=== PATIENT | female | born 1995 | race Caucasian/White ===

== ENCOUNTER 2016-08-28 15:06 | Emergency (ER) | payer OTHER ==
[~2016-08-28] VITALS: Ht 170.2 cm; Wt 62.7 kg
[2016-08-28 15:10] VITALS: TEMP 36.7
[2016-08-28] MEDS ORDERED: ADVIN25/60 INH (15:42)
[2016-08-28] MEDS ORDERED: SODIUM CHLORIDE 0.9% 1000ML 1,000 ML IV STA (16:09)
[2016-08-28 16:15] VITALS: Ht 170.2 cm; Wt 62.7 kg
--- NOTE | 2016-08-28 16:15 | EMERGENCY ROOM VISIT NOTE ---
History Report prepared by George: Artis Callejas Under the Supervision of: Dr. Damion Haskins M.D. First contact with patient: 16:03 Chief Complaint: ED VAG BLEEDING Stated Complaint: INTERNAL BLEEDING, CRAMPS, 7-8 WKS History of Present Illness The patient is a 21 year old female who presents to the Emergency Room with complaints of vaginal bleeding that began 3 days ago. The patient is 7-8 weeks . She realized that she was two to three weeks ago. She has never been before and has not had any miscarriages. The patient began to experience abnormal vaginal bleeding. She states that is is bright red and a significantly larger amount than her usual periods. She goes through a large pad every 2/3 hours. She is also experiencing abdominal cramps. Her BHG was 387.6 yesterday. She denies any recent fevers. Source of History: patient Onset: 3 days ago Position: other (vagina) Symptom Intensity: moderate Quality: other (bleeding) Timing: intermittent Associated Symptoms: + abdominal pain, No fevers Review of Systems See HPI for pertinent positives & negatives. A total of 10 systems reviewed and were otherwise negative. Past Medical & Surgical Medical Problems: (1) No Known Active Medical Problems Family History Diabetes mellitus FH: heart disease Social History Smoking Status: Never Smoker Smokeless Tobacco Use: Unknown Housing Status: unknown Current/Historical Medications Scheduled Fluticasone Prop/Salmeterol (Advair Diskus 250/50 60 Dose), 1 PUFF INH QAM Allergies Coded Allergies: No Known Allergies (Unverified , 06/02/10) Physical Exam Vital Signs Date Time Temp Pulse Resp B/P Pulse Ox O2 Delivery O2 Flow Rate FiO2 08/28/16 16:22 66 08/28/16 16:16 Room Air 08/28/16 15:10 36.7 67 18 125/76 98 Room Air Physical Exam GENERAL: Patient is a healthy-appearing well-nourished HEAD: Normocephalic atraumatic EYES: Ocular movements intact pupils equal and react to light OROPHARYNX mucous membranes are moist no exudates present no erythema or edema present NECK: Supple no nuchal rigidity CHEST: Good equal expansion LUNGS: Clear and equal to auscultation CARDIAC: Normal S1 and S2 ABDOMEN: Soft nontender no guarding BACK: No CVA tenderness EXTREMITIES: No pain upon palpation normal muscle strength in all groups no clubbing cyanosis or edema NEURO: Patient is following commands is answering questions appropriately. Alert and oriented x3 Cranial Nerves 2-12 grossly intact Medical Decision & Procedures ER Provider Diagnostic Interpretation: Radiology results are stated below per my review and radiologist interpretation: <14 WKS SINGLE ((transabdominal and endovaginal scanning) CLINICAL HISTORY: . Heavy vaginal bleeding. COMPARISON STUDY: No previous studies for comparison. FINDINGS: The uterus measured 7.2 x 3.5 x 4.9 cm. No intrauterine gestational sac was visualized. The endometrial stripe measured 8 mm. The right ovary measured 31 x 13 x 23 mm. The left ovary measured 28 x 20 x 21 mm. Both ovaries appear architecturally unremarkable. IMPRESSION: 1. No adnexal masses identified 2. No evidence of intrauterine gestation. Diagnostic considerations therefore include early intrauterine gestation (too small to visualize), spontaneous , or ectopic . Clinical follow-up and correlation with quantitative beta hCGs is recommended. Electronically signed by: Kalpesh Borges M.D. 08/28/2016 6:27 PM Dictated Date/Time: 08/28/2016 6:25 PM Laboratory Results 08/28/16 16:05 Red Blood Count 4.35, Mean Corpuscular Volume 83.7, Mean Corpuscular Hemoglobin 28.5, Mean Corpuscular Hemoglobin Concent 34.1, Mean Platelet Volume 9.4, Neutrophils (%) (Auto) 67.1, Lymphocytes (%) (Auto) 22.9, Monocytes (%) (Auto) 5.4, Eosinophils (%) (Auto) 4.5, Basophils (%) (Auto) 0.1, Neutrophils # (Auto) 4.48, Lymphocytes # (Auto) 1.53, Monocytes # (Auto) 0.36, Eosinophils # (Auto) 0.30, Basophils # (Auto) 0.01 08/28/16 16:05 Test 08/28/16 16:05 08/28/16 16:20 White Blood Count 6.68 K/uL (4.8-10.8) Red Blood Count 4.35 M/uL (4.2-5.4) Hemoglobin 12.4 g/dL (12.0-16.0) Hematocrit 36.4 % (37-47) Mean Corpuscular Volume 83.7 fL (80-100) Mean Corpuscular Hemoglobin 28.5 pg (25-34) Mean Corpuscular Hemoglobin Concent 34.1 g/dl (32-36) Platelet Count 290 K/uL (130-400) Mean Platelet Volume 9.4 fL (7.4-10.4) Neutrophils (%) (Auto) 67.1 % Lymphocytes (%) (Auto) 22.9 % Monocytes (%) (Auto) 5.4 % Eosinophils (%) (Auto) 4.5 % Basophils (%) (Auto) 0.1 % Neutrophils # (Auto) 4.48 K/uL (1.4-6.5) Lymphocytes # (Auto) 1.53 K/uL (1.2-3.4) Monocytes # (Auto) 0.36 K/uL (0.11-0.59) Eosinophils # (Auto) 0.30 K/uL (0-0.5) Basophils # (Auto) 0.01 K/uL (0-0.2) RDW Standard Deviation 43.5 fL (36.4-46.3) RDW Coefficient of Variation 14.1 % (11.5-14.5) Immature Granulocyte % (Auto) 0.0 % Immature Granulocyte # (Auto) 0.00 K/uL (0.00-0.02) Prothrombin Time 10.3 SECONDS (9.0-12.0) Prothromb Time International Ratio 1.0 (0.9-1.1) Activated Partial Thromboplast Time 28.1 SECONDS (21.0-31.0) Partial Thromboplastin Ratio 1.1 Anion Gap 10.0 mmol/L (3-11) Est Creatinine Clear Calc Drug Dose 130.9 ml/min Estimated GFR () 145.0 Estimated GFR (Non- 125.1 BUN/Creatinine Ratio 25.4 (10-20) Calcium Level 8.6 mg/dl (8.5-10.1) Total Bilirubin 0.3 mg/dl (0.2-1) Aspartate Amino Transf (AST/SGOT) 48 U/L (15-37) Alanine Aminotransferase (ALT/SGPT) 86 U/L (12-78) Alkaline Phosphatase 78 U/L (45-117) Total Protein 7.0 gm/dl (6.4-8.2) Albumin 3.5 gm/dl (3.4-5.0) Globulin 3.5 gm/dl (2.5-4.0) Albumin/Globulin Ratio 1.0 (0.9-2) Human Chorionic Gonadotropin, Quant 127 mIU/mL Urine Color DK YELLOW Urine Appearance CLEAR (CLEAR) Urine pH 5.0 (4.5-7.5) Urine Specific [place] 1.026 (1.000-1.030) Urine Protein NEG (NEG) Urine Glucose (UA) NEG (NEG) Urine Ketones NEG (NEG) Urine Occult Blood 3+ (NEG) Urine Nitrite NEG (NEG) Urine Bilirubin NEG (NEG) Urine Urobilinogen NEG (NEG) Urine Leukocyte Esterase NEG (NEG) Urine WBC (Auto) 1-5 /hpf (0-5) Urine RBC (Auto) 0-4 /hpf (0-4) Urine Hyaline Casts (Auto) 1-5 /lpf (0-5) Urine Epithelial Cells (Auto) >30 /lpf (0-5) Urine Bacteria (Auto) NEG (NEG) Urine Test POS (NEG) Labs reviewed by ED physician. Medications Administered Medications (Trade) Dose Ordered Sig/Ilana Route Start Time Stop Time Status Last Admin Dose Admin Sodium Chloride (Nss 1000ml) 1,000 ml @ 999 mls/hr Q1H1M STAT IV 08/28/16 16:09 08/28/16 17:09 DC 08/28/16 16:20 999 MLS/HR ED Course 1603: Past medical records reviewed. The patient was evaluated in room A9. A complete history and physical examination was performed. 1609: Sodium Chloride 1000 ml @ 999 mls/hr 1900: Upon reexamination the patient is resting. I discussed results and treatment plan with the patient. She verbalizes agreement and understanding. The patient is ready for discharge. Medical Decision Differential diagnosis: Etiologies such as ectopic , dysfunction uterine bleeding, bleeding dyscrasia, trauma, infection, as well as others were entertained. This is a 21-year-old female who presents emergency department complaining of vaginal bleeding. The patient notes that her beta hCG yesterday was 370. She has never been before. The patient's blood type is negative therefore she was given RhoGam in the emergency department. The patient was given normal saline bolus. I will note that her beta hCG has fallen to 100 today. She is minimally tender on examination and I suspect has had a miscarriage. The patient was sent for an ultrasound. I do believe that the patient as well as to be discharged home for follow-up with her patcher helper. Impression Primary Impression: Miscarriage Scribe Attestation The scribe's documentation has been prepared under my direction and personally reviewed by me in its entirety. I confirm that the note above accurately reflects all work, treatment, procedures, and medical decision making performed by me. Departure Information Dispostion Home / Self-Care Referrals Shlomo Boykin M.D. (PCP) Forms HOME CARE DOCUMENTATION FORM, IMPORTANT VISIT INFORMATION, WORK / SCHOOL INSTRUCTIONS Patient Instructions ED Miscarriage Completed, My [facility], Rh Negative, RhoD Immune Globulin Human Solution for injection Additional Instructions Need follow up with Dr harrell's office You have been examined and treated today on an emergency basis only. This is not a substitute for, or an effort to provide, complete comprehensive medical care. It is impossible to recognize and treat all injuries or illnesses in a single emergency department visit. It is therefore important that you follow up closely with Dr Morrow. Call as soon as possible for an appointment. Thank you for your time and consideration. I look forward to speaking with you again soon. Please don't hesitate to call us if you have any questions.
[2016-08-28 16:29] LABS: BASO % 0.1 %; BASO ABS # 0.01 K/uL (0-0.2); COMPLETE YES; EOS % 4.5 %; HEMATOCRIT 36.4 % (37-47); LYMPH % 22.9 %; LYMPH ABS # 1.53 K/uL (1.2-3.4); MEAN CELL VOLUME 83.7 fL (80-100); MEAN CORPUSCULAR HEMOGLOBIN 28.5 pg (25-34); MEAN CORPUSCULAR HGB CONC 34.1 g/dl (32-36); MEAN PLATELET VOLUME 9.4 fL (7.4-10.4); MONO % 5.4 %; NEUT % 67.1 %; PLATELET COUNT 290 K/uL (130-400); RED BLOOD COUNT 4.35 M/uL (4.2-5.4); WHITE BLOOD COUNT 6.68 K/uL (4.8-10.8)
[2016-08-28 16:37] LABS: BUN/CREATININE RATIO 25.4 (10-20); CALCIUM 8.6 mg/dl (8.5-10.1); CREATININE 0.65 mg/dl (0.60-1.20); POTASSIUM 3.5 mmol/L (3.5-5.1)
[2016-08-28 16:40] LABS: PARTIAL THROMBOPLASTIN RATIO 1.1; PROTHROMBIN TIME (PATIENT) 10.3 SECONDS (9.0-12.0)
[2016-08-28 17:01] LABS: MANUAL MICROSCOPIC REQUIRED? NO; REVIEW REQ? NO; URINE APPEARANCE CLEAR (CLEAR); URINE BILIRUBIN NEG (NEG); URINE COLOR DK YELLOW; URINE EPITHELIAL CELL AUTO >30 /lpf (0-5); URINE NITRITE NEG (NEG); URINE SPECIFIC GRAVITY 1.026 (1.000-1.030); UROBILINOGEN NEG (NEG)
--- NOTE | 2016-08-28 18:29 | DIAGNOSTIC IMAGING REPORT ---
<14 WKS SINGLE ((transabdominal and endovaginal scanning) CLINICAL HISTORY: . Heavy vaginal bleeding. COMPARISON STUDY: No previous studies for comparison. FINDINGS: The uterus measured 7.2 x 3.5 x 4.9 cm. No intrauterine gestational sac was visualized. The endometrial stripe measured 8 mm. The right ovary measured 31 x 13 x 23 mm. The left ovary measured 28 x 20 x 21 mm. Both ovaries appear architecturally unremarkable. IMPRESSION: 1. No adnexal masses identified 2. No evidence of intrauterine gestation. Diagnostic considerations therefore include early intrauterine gestation (too small to visualize), spontaneous , or ectopic . Clinical follow-up and correlation with quantitative beta hCGs is recommended. Electronically signed by: Kalpesh Borges M.D. 08/28/2016 6:27 PM Dictated Date/Time: 08/28/2016 6:25 PM
[2016-08-28 19:40] VITALS: BP 116/95; PULSE 58; O2SAT 100
== END 2016-08-28 19:51 | disposition home or self-care (01) ==
LOC: C.EDB 15:07 → C.EDA 19:51
DX: O03.9 Complete or unspecified spontaneous abortion without complication (principal); Z3A.01 Less than 8 weeks gestation of pregnancy